=== PATIENT | male | born 1975 | race Caucasian/White ===

== ENCOUNTER 2020-08-01 08:02 | Inpatient (IN) | payer SELFPAY ==
[~2020-08-01] VITALS: Ht 177.8 cm; Wt 182.9 kg
[~2020-08-01 08:02] MED LIST: 3IN1 COMMODE; ADULT LOW DOSE81 MG PO; AZITHROMYCIN250 MG PO; CEFDINIR300 MG PO; CHLORTHALIDONE25 MG PO; COREG25 MG PO; COZAAR50 MG PO; DUONEB 2.5-0.5M1 AMP NEB; NORVASC5 MG PO; PREDNISONE 10MG10 MG PO; PREDNISONE 20MG20 MG PO; TESSALON PERLE100 MG PO; TRIMOX250 MG/5 M PO; WELLBUTRIN SR150 MG PO
[2020-08-01 09:00] LABS: BASOPHIL 0.5 % (0-2); EOSINOPHIL 1.9 % (0-5); HGB 15.8 g/dl (13.2-18.0); LYMPHOCYTE 11.2 % (15-48); MCH 29.1 pg (25.0-31.0); MCHC 30.4 g/dL (32.0-36.0); MCV 95.8 fL (78.0-100.0); MONOCYTE 12.2 % (0-12); MPV 10.1 fL (6.0-9.5); NEUTROPHIL 73.7 % (41-80); NRBC 0; PLT 256 K/uL (150-400); RBC 5.43 M/uL (4.70-6.00); RDW 14.9 % (11.5-14.0); WBC 12.6 K/uL (4.0-10.5)
[2020-08-01 09:32] LABS: ALBUMIN 2.5 g/dL (3.4-5.0); BILIRUBIN - TOTAL 0.4 mg/dL (0.2-1.0); BUN/CREAT RATIO (CALC) 13.4 RATIO; CREATININE 0.97 mg/dL (0.67-1.17); GLOBULIN (CALCULATION) 3.8 g/dL; POTASSIUM 3.7 mmol/L (3.5-5.1); TOTAL PROTEIN 6.3 g/dL (6.4-8.2)
[2020-08-01 09:42] LABS: PRO-BNP 346 pg/mL (<125)
[2020-08-01 09:55] LABS: LACTIC ACID 2.2 mmol/L (0.4-1.9)
[2020-08-01 10:00] LABS: CORONAVIRUS 2019 SARS-COV-2 NEGATIVE (NEGATIVE); INFLUENZA A NAA NEGATIVE (NEGATIVE)
[2020-08-01 11:15] LABS: BILIRUBIN NEGATIVE (NEGATIVE); BLOOD 2+ Ery/uL (NEGATIVE); COLOR YELLOW (YELLOW); GLUCOSE (U) 3+ mg/dL (NORMAL); LEUKOCYTES 2+ Leu/uL (NEGATIVE); NITRITE NEGATIVE (NEGATIVE); PROTEIN 1+ mg/dL (NEGATIVE); SPECIFIC GRAVITY 1.015 (1.001-1.030)
[2020-08-01 11:18] LABS: CLARITY HAZY (CLEAR)
[2020-08-01 11:22] LABS: BACTERIA TRACE; URINARY WBC TNTC
[2020-08-01 11:38] LABS: INR 1.03 (0.9-1.2); PROTHROMBIN TIME 12.8 SECONDS (11.4-13.6)
[2020-08-01] MEDS ORDERED: ASPIRIN325 MG PO (15:34)
[2020-08-01] MEDS ORDERED: VENTOLIN HFA IN18 GM INH (15:35)
[2020-08-02 06:14] LABS: BASOPHIL 0.2 % (0-2); EOSINOPHIL 0 % (0-5); HCT 53.7 % (42.0-52.0); HGB 15.8 g/dl (13.2-18.0); LYMPHOCYTE 5.6 % (15-48); MCHC 29.4 g/dL (32.0-36.0); MCV 98.7 fL (78.0-100.0); MONOCYTE 7.6 % (0-12); MPV 10.2 fL (6.0-9.5); NEUTROPHIL 85.9 % (41-80); NRBC 0; PLT 255 K/uL (150-400); RBC 5.44 M/uL (4.70-6.00); RDW 14.7 % (11.5-14.0); WBC 16.4 K/uL (4.0-10.5)
[2020-08-02 06:42] LABS: BUN/CREAT RATIO (CALC) 21.3 RATIO; CREATININE 0.94 mg/dL (0.67-1.17); POTASSIUM 4.9 mmol/L (3.5-5.1)
[2020-08-03 07:03] LABS: BASOPHIL 0.2 % (0-2); EOSINOPHIL 0.6 % (0-5); HCT 50.6 % (42.0-52.0); LYMPHOCYTE 7.3 % (15-48); MCHC 29.6 g/dL (32.0-36.0); MCV 97.7 fL (78.0-100.0); MONOCYTE 9.7 % (0-12); NEUTROPHIL 81.6 % (41-80); PLT 257 K/uL (150-400); RBC 5.18 M/uL (4.70-6.00); RDW 14.8 % (11.5-14.0); WBC 17.2 K/uL (4.0-10.5)
[2020-08-03 07:16] LABS: INR 1.19 (0.9-1.2); PROTHROMBIN TIME 14.3 SECONDS (11.4-13.6)
[2020-08-03 07:23] LABS: BUN/CREAT RATIO (CALC) 22.3 RATIO; CREATININE 0.94 mg/dL (0.67-1.17); POTASSIUM 4.1 mmol/L (3.5-5.1)
[2020-08-03 07:28] LABS: LYMPHOCYTE(M) 8 % (15-48); MONOCYTE(M) 7 % (0-12); NEUTROPHILS(M) 83 % (41-80); NRBC 0; PLATELET ESTIMATE NORMAL; PLATELET MORPHOLOGY NORMAL; TOTAL CELL COUNT 100; VARIANT LYMPHOCYTE 2
[2020-08-04 06:23] LABS: BASOPHIL 0.2 % (0-2); EOSINOPHIL 0 % (0-5); HCT 53.1 % (42.0-52.0); HGB 15.7 g/dl (13.2-18.0); LYMPHOCYTE 3.8 % (15-48); MCH 28.9 pg (25.0-31.0); MCHC 29.6 g/dL (32.0-36.0); MCV 97.8 fL (78.0-100.0); MONOCYTE 3.1 % (0-12); MPV 10.7 fL (6.0-9.5); PLT 265 K/uL (150-400); RBC 5.43 M/uL (4.70-6.00); RDW 14.6 % (11.5-14.0); WBC 11.9 K/uL (4.0-10.5)
[2020-08-04 06:38] LABS: NEUTROPHIL 92.5 % (41-80)
[2020-08-04 06:42] LABS: INR 1.66 (0.9-1.2); PROTHROMBIN TIME 18.6 SECONDS (11.4-13.6)
[2020-08-04 06:44] LABS: BUN/CREAT RATIO (CALC) 22.7 RATIO; CREATININE 0.97 mg/dL (0.67-1.17); POTASSIUM 4.7 mmol/L (3.5-5.1)
[2020-08-04 07:13] LABS: LYMPHOCYTE(M) 5 % (15-48); MONOCYTE(M) 1 % (0-12); NEUTROPHILS(M) 94 % (41-80); TOTAL CELL COUNT 100
[2020-08-04 07:14] LABS: PLATELET ESTIMATE NORMAL; PLATELET MORPHOLOGY NORMAL
[2020-08-04 07:51] LABS: NRBC 0
[2020-08-05 03:37] LABS: BASOPHIL 0.1 % (0-2); EOSINOPHIL 0.1 % (0-5); HCT 50.1 % (42.0-52.0); HGB 15.1 g/dl (13.2-18.0); LYMPHOCYTE 4.4 % (15-48); MCHC 30.1 g/dL (32.0-36.0); MCV 96.2 fL (78.0-100.0); MONOCYTE 4.8 % (0-12); MPV 10.6 fL (6.0-9.5); NEUTROPHIL 90.2 % (41-80); NRBC 0; PLT 257 K/uL (150-400); RBC 5.21 M/uL (4.70-6.00); RDW 14.3 % (11.5-14.0); WBC 13.6 K/uL (4.0-10.5)
[2020-08-05 03:47] LABS: INR 2.05 (0.9-1.2)
[2020-08-05 03:55] LABS: BUN/CREAT RATIO (CALC) 25.3 RATIO; CREATININE 0.91 mg/dL (0.67-1.17); POTASSIUM 4.9 mmol/L (3.5-5.1)
[2020-08-05 04:37] LABS: TOTAL CELL COUNT 100
[2020-08-05 04:41] LABS: PLATELET ESTIMATE NORMAL; PLATELET MORPHOLOGY NORMAL
[2020-08-05 04:52] LABS: NEUTROPHILS(M) 87 % (41-80)
[2020-08-05 04:53] LABS: BAND 2 % (0-10); LYMPHOCYTE(M) 5 % (15-48); MONOCYTE(M) 6 % (0-12)
[2020-08-06 04:11] LABS: INR 2.09 (0.9-1.2); PROTHROMBIN TIME 22.3 SECONDS (11.4-13.6)
[2020-08-06 04:22] LABS: BUN/CREAT RATIO (CALC) 24.5 RATIO; CREATININE 1.02 mg/dL (0.67-1.17); POTASSIUM 4.9 mmol/L (3.5-5.1)
[2020-08-06] MEDS ORDERED: HUMULIN 70100 UNIT/1 SC (09:18)
[2020-08-06] MEDS ORDERED: WARFARIN SODIUM2 MG PO (09:18)
[2020-08-06] MEDS ORDERED: METFORMIN HCL500 MG PO (09:18)
[2020-08-06] MEDS ORDERED: LIPITOR20 MG PO (09:18)
[2020-08-06] MEDS ORDERED: LISINOPRIL40 MG PO (09:18)
[2020-08-06] MEDS ORDERED: AMARYL 2MG TABLE2 MG PO (09:18)
[2020-08-06] MEDS ORDERED: GLIMEPIRIDE4 MG PO (09:23)
[2020-08-06] MEDS ORDERED: WARFARIN SODIUM6 MG PO (09:25)
[2020-08-06] MEDS ORDERED: ADVAIR HFA 230-28 GM INH (09:28)
[2020-08-06] MEDS ORDERED: VENTOLIN HFA IN18 GM INH (09:28)
== END 2020-08-06 12:05 | disposition home or self-care (01) | DRG 175 ==
LOC: FER 08:02 → FMS 11:30 → FTCU 08-04 07:26
PROVIDERS: Emergency Medicine; Internal Medicine Cardiovascular Disease; Nurse Practitioner Family; ADMIT Allergy & Immunology Allergy
DX: I26.99 Other pulmonary embolism without acute cor pulmonale (principal); J96.91 Respiratory failure, unspecified with hypoxia; J18.9 Pneumonia, unspecified organism; E66.2 Morbid (severe) obesity with alveolar hypoventilation; N39.0 Urinary tract infection, site not specified; J44.0 Chronic obstructive pulmonary disease with (acute) lower respiratory infection; E11.9 Type 2 diabetes mellitus without complications; I10 Essential (primary) hypertension; Z20.822 Contact with and (suspected) exposure to COVID-19; E11.65 Type 2 diabetes mellitus with hyperglycemia; B95.5 Unspecified streptococcus as the cause of diseases classified elsewhere; D75.1 Secondary polycythemia; Z79.4 Long term (current) use of insulin; Z79.01 Long term (current) use of anticoagulants; F17.200 Nicotine dependence, unspecified, uncomplicated
CPT/HCPCS: 36415; 36600; 71045; 71275; 80048; 80053; 80061; 81001; 82803; 82962; 83036; 83605; 83880; 84145; 84484; 85025; 85610; 87040; 87076; 87088; 93005; 93970; 94640; 94660; 94667; 94668; J0456; J0696; J1650; J2920; J2930; J7030; J7050; Q9967; U0002